=== PATIENT | female | born 2000 | race Caucasian/White ===

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

== ENCOUNTER 2020-01-08 17:00 | Emergency (ER) | payer OTHER ==
[2020-01-08 17:15] VITALS: BP 112/76; PULSE 88; TEMP 97.6; BMI 27.4
--- NOTE | 2020-01-08 17:19 | PDOC ---
Rapid Medical Evaluation Time Seen by Provider: 01/08/20 17:11 Medical Evaluation: Allergies Allergy/AdvReac Type Severity Reaction Status Date / Time No Known Allergies Allergy Verified 01/08/20 17:11 01/08/20 17:13 This patient had rapid medical evaluation in triage cc: rash HPI: Patient reports rash to her face x 1 week seen by pmd prescribed cream but states cream not working PE: NAD erythematous, scaly rash to face and eye unlabored breathing Orders: none This patient will proceed to ed for further evaluation. Discharge Disposition - Diagnosis Rash and nonspecific skin eruption - Discharge Dispostion Disposition: HOME Condition at time of disposition: Stable - Referrals Referrals: Landy Stanton MD [Staff Physician] - Eriberto Will MD [Primary Care Provider] - - Patient Instructions Additional Instructions: Please use 1% hydrocortisone as we discussed once a day on your face return to the emergency room for worsening symptoms and without fail follow-up with dermatology in 2 to 3 days for further evaluation and treatment options. - Post Discharge Activity
--- NOTE | 2020-01-08 17:34 | PDOC ---
History of Present Illness - General Chief Complaint: Rash Stated Complaint: RASH ON FACE Time Seen by Provider: 01/08/20 17:11 - History of Present Illness Initial Comments: 01/08/20 17:32 19-year-old female with a past medical history of eczema presents for exacerbation of rash on her face x2 weeks no systemic symptoms Past History - Past Medical History Allergies/Adverse Reactions: Allergies Allergy/AdvReac Type Severity Reaction Status Date / Time No Known Allergies Allergy Verified 01/08/20 17:11 Home Medications: Ambulatory Orders Ranitidine HCl [Zantac] 150 mg PO BID PRN #30 tablet MDD 2 tab 03/24/19 COPD: No - Immunization History Immunization Up to Date: Yes - Psycho Social/Smoking Cessation Hx Smoking History: Never smoked Have you smoked in the past 12 months: No Hx Alcohol Use: No Drug/Substance Use Hx: No Review of Systems - Review of Systems Constitutional: No: Fever Integumentary: Yes: Pruritus, Rash *Physical Exam - Vital Signs Last Vital Signs Temp Pulse Resp BP Pulse Ox 97.6 F 88 17 112/76 100 01/08/20 17:12 01/08/20 17:12 01/08/20 17:12 01/08/20 17:12 01/08/20 17:12 - Physical Exam 01/08/20 17:33 GENERAL: The patient is awake, alert, and fully oriented, in no acute distress. HEAD: Normal with no signs of trauma. EYES: sclera anicteric, conjunctiva clear. ENT: Ears normal tympanic membranes normal oropharynx clear uvula midline NECK: Normal range of motion LUNGS: Breath sounds equal, clear to auscultation bilaterally. No wheezes, and no crackles. HEART: S1 and S2 without murmur, rub or gallop. ABDOMEN: Soft, nontender, normoactive bowel sounds. No guarding, no rebound. No masses. EXTREMITIES: Normal range of motion, no edema. No clubbing or cyanosis. No cords, erythema, or tenderness. NEUROLOGICAL: Cranial nerves II through XII grossly intact. PSYCH: Normal mood, normal affect. SKIN: Warm, Dry, normal turgor, there is a scaly dry rash about the face is mildly erythemic and raised Medical Decision Making - Medical Decision Making 01/08/20 17:33 This may be exacerbation of eczema versus seborrheic dermatitis I have advised the patient Benadryl for itching 1% hydrocortisone once a day and follow-up with dermatology Discharge - Discharge Information Problems reviewed: Yes Clinical Impression/Diagnosis: Rash and nonspecific skin eruption Condition: Stable Disposition: HOME - Admission No - Follow up/Referral Referrals: Eriberto Will MD [Primary Care Provider] - Landy Stanton MD [Staff Physician] - - Patient Discharge Instructions Additional Instructions: Please use 1% hydrocortisone as we discussed once a day on your face return to the emergency room for worsening symptoms and without fail follow-up with dermatology in 2 to 3 days for further evaluation and treatment options. - Post Discharge Activity
== END 2020-01-08 17:43 | disposition home or self-care (01) ==
LOC: JERFT 17:00
DX: R21 Rash and other nonspecific skin eruption (principal); Z87.2 Personal history of diseases of the skin and subcutaneous tissue
CPT/HCPCS: 99283-25

== ENCOUNTER 2020-02-18 20:18 | Emergency (ER) | payer OTHER ==
[2020-02-18] MEDS ORDERED: ALBUTEROL SO4 HFA INHALER IH ONE ×2 (20:27→20:41)
[2020-02-18] MEDS ORDERED: ACETAMINOPHEN 650 MG/20.3 ML ORAL SOLUTION (CUPS) PO ONE (20:31)
[2020-02-18 20:32] VITALS: BMI 29.2
--- NOTE | 2020-02-18 20:33 | PDOC ---
History of Present Illness - General Chief Complaint: Cold Symptoms Stated Complaint: SHORTNESS OR BREATH Time Seen by Provider: 02/18/20 20:25 History Source: Patient Exam Limitations: Clinical Condition - History of Present Illness Initial Comments: 02/18/20 20:28 Patient with no sig Pmhx present with complains of 5 days h/o cough, nasal congestion, runny nose and fever . Patient report starting to have intermittent SOB and wheezing for 2 days. Denies h/o Asthma or any pulmonary hx. Denies sick contact or explosure to anybody with positive covid. Patient report has been t aking OTC meds with minimal improvement . Denies any other symptoms Is this a multiple visit Asthma Patient?: No Timing/Duration: other (5 days) Past History - Past Medical History Allergies/Adverse Reactions: Allergies Allergy/AdvReac Type Severity Reaction Status Date / Time No Known Allergies Allergy Verified 02/18/20 20:27 Home Medications: Ambulatory Orders Ranitidine HCl [Zantac] 150 mg PO BID PRN #30 tablet MDD 2 tab 03/24/19 Azithromycin [Zithromax 250mg Tablets -] 250 mg PO UTDICT #6 tab 02/18/20 Benzonatate [Tessalon Pearls -] 100 mg PO Q8H PRN #16 capsule 02/18/20 Methylprednisolone [Medrol Dose Jere] 4 mg PO ASDIR #21 tablet 02/18/20 COPD: No - Immunization History Immunization Up to Date: Yes - Psycho Social/Smoking Cessation Hx Smoking History: Never smoked Have you smoked in the past 12 months: No Hx Alcohol Use: No Drug/Substance Use Hx: No Review of Systems - Review of Systems Able to Perform ROS?: Yes Is the patient limited [place] proficient: No Constitutional: Yes: Chills, Fever, Malaise HEENTM: Yes: Symptoms Reported, See HPI, Nose Congestion. No: Eye Pain, Blurred Vision, Tearing, Recent change in vision, Double Vision, Cataracts, Ear Pain, Ocular Prothesis, Ear Discharge, Nose Pain, Tinnitus, Nose Bleeding, Hearing Loss, Throat Pain, Throat Swelling, Mouth Pain, Dental Problems, Difficulty Swallowing, Mouth Swelling, Other Respiratory: Yes: Symptoms reported, See HPI, Cough. No: Orthopnea, Shortness of Breath, SOB with Exertion, SOB at Rest, Stridor, Wheezing, Productive cough, Hemoptysis, Other Cardiac (ROS): No: Symptoms Reported, See HPI, Chest Pain, Edema, Irregular Heart Rate, Lightheadedness, Palpitations, Syncope, Chest Tightness, Other ABD/GI: No: Symptoms Reported, See HPI, Constipated, Diarrhea, Nausea, Vomiting, Abdominal cramping : No: Symptoms Reported Musculoskeletal: No: Symptoms Reported Integumentary: No: Symptoms Reported, Rash Neurological: No: Symptoms reported, Headache, Numbness, Weakness, Dizziness All Other Systems: Reviewed and Negative *Physical Exam - Physical Exam General Appearance: Yes: Nourished, Appropriately Dressed. No: Apparent Distress HEENT: positive: [place], Normal ENT Inspection, Normal Voice, Pharynx Normal Neck: positive: Supple. negative: Tender Respiratory/Chest: positive: Lungs Clear, Normal Breath Sounds. negative: Chest Tender, Respiratory Distress, Accessory Muscle Use Cardiovascular: positive: Regular Rhythm, Regular Rate. 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 Patient report starting to have intermittent SOB and wheezing for 2 days. Denies h/o Asthma or any pulmonary hx. Denies sick contact or explosure to anybody with positive covid. Patient report has been taking OTC meds with minimal improvement . Denies any other symptoms Clinical exam significant for fever of 103F. lungs CTAB in NAD. normal cardio exam. no pharyngeal erythema. Given persistent cough, will order CXR tyo r/o PNA. Tylenol 975mg PO ordered for fever albuterol inhaler ordered for bronchospasm Treat based on imaging results 02/18/20 21:48 CXR shows no PNA. Patient with improvement in bronchospasm with inhaler. Patient stable for discharge on zpak given fevers, tessalon perles for cough and medrol-jere with advise to increase fluid intake and take Tylenol as needed for fever with instructions to self quarantine. Repeat temp is 99.6F prior to d/c Discharge - Discharge Information Problems reviewed: Yes Clinical Impression/Diagnosis: URI with cough and congestion Condition: Stable Disposition: HOME - Admission No - Additional Discharge Information Prescriptions: Methylprednisolone [Medrol Dose Jere] 4 mg PO ASDIR #21 tablet Benzonatate [Tessalon Pearls -] 100 mg PO Q8H PRN #16 capsule PRN Reason: Cough Azithromycin [Zithromax 250mg Tablets -] 250 mg PO UTDICT #6 tab - Follow up/Referral Referrals: Eriberto Will MD [Primary Care Provider] - - Patient Discharge Instructions Patient Printed Discharge Instructions: [facility]-Coronavirus Instructions Additional Instructions: Your chest x-rays shows no pneumonia. Take prescribed medications as prescribed. Increase fluid intake. Take Tylenol as needed for fever. wear mask at all times and refrain from public gathering until no fever for at least 24hrs. Follow-up with your PCP - Post Discharge Activity
[2020-02-18] MEDS ORDERED: ALBUTEROL SO4 0.083% IH SOL 2.5 MG/3 ML VIAL.NEB. NEB ONE (20:40)
[2020-02-18 21:32] VITALS: BP 110/76; PULSE 102; TEMP 99.6
== END 2020-02-18 21:50 | disposition home or self-care (01) ==
LOC: JER 20:18
PROC: 3E0F7GC Introduction of Other Therapeutic Substance into Respiratory Tract, Via Natural or Artificial Opening (ICD-10-PCS; principal; 2020-02-18)
DX: J06.9 Acute upper respiratory infection, unspecified (principal); J98.01 Acute bronchospasm
CPT/HCPCS: 71045-TC-FY; 94640; 99284-25

== ENCOUNTER 2021-08-06 08:39 | Emergency (ER) | payer OTHER ==
[2021-08-06 08:45] VITALS: BMI 33.0
[2021-08-06] MEDS ORDERED: SODIUM CHLORIDE 500 ML IV STA (09:28)
[2021-08-06] MEDS ORDERED: ONDANSETRON 4 MG/2 ML VIAL IVPB ONE (09:28)
[2021-08-06] MEDS ORDERED: ONDANSETRON 4 MG/2 ML VIAL ONE (09:47)
[2021-08-06 10:18] LABS: BASO % 0.5 % (0-2.0); EOS % 2.2 % (0-4.5); HEMATOCRIT 36.4 % (32.4-45.2); HEMOGLOBIN 12.4 GM/dL (10.7-15.3); LYMPH % 18.7 % (8-40); MCH 27.1 pg (25.7-33.7); MCHC 34.1 g/dl (32.0-36.0); MEAN CELL VOLUME 79.4 fl (80-96); MEAN PLT VOLUME 7.7 fl (7.5-11.1); MONO % 6.2 % (3.8-10.2); NEUT % 72.4 % (42.8-82.8); PLATELET COUNT 231 10^3/uL (134-434); RBC 4.59 M/mm3 (3.60-5.2); RDW 14.8 % (11.6-15.6); WHITE BLOOD COUNT 8.2 K/mm3 (4.0-10.0)
[2021-08-06 10:21] LABS: EPI CELLS 19 /uL (0-25.1); HYALINE CASTS 1 /uL (0-3.1); PH,URINE 5.5 (5.0-8.0); URINE APPEARANCE CLEAR; URINE BACTERIA 400 /uL (0-1359); URINE BILIRUBIN NEGATIVE (NEGATIVE); URINE COLOR YELLOW; URINE GLUCOSE (UA) NEGATIVE (NEGATIVE); URINE KETONE NEGATIVE (NEGATIVE); URINE LEUK ESTERASE TRACE (NEGATIVE); URINE NITRITE NEGATIVE (NEGATIVE); URINE PROTEIN NEGATIVE (NEGATIVE); URINE RBC 4 /uL (0-23.9); URINE UROBILINOGEN 0.2 mg/dL (0.2-1.0); URINE WBC 29 /uL (0-25.8)
[2021-08-06 10:23] LABS: HCG,QUALITATIVE URINE Negative
[2021-08-06 10:26] LABS: INR 1.03 (0.83-1.09); PROTHROMBIN TIME (PATIENT) 12.6 SEC (9.7-13.0)
[2021-08-06 10:29] LABS: ACTIVATED PTT 31.4 SECONDS (25.2-36.5)
[2021-08-06 10:39] LABS: ALBUMIN 3.6 g/dl (3.4-5.0); BLOOD UREA NITROGEN 8.8 mg/dL (7-18); CALCIUM 8.4 mg/dL (8.5-10.1)
[2021-08-06 10:42] LABS: CREATININE 0.5 mg/dL (0.55-1.3)
[2021-08-06 10:44] LABS: BILIRUBIN,TOTAL 0.3 mg/dL (0.2-1); TOT PROT 7.6 g/dl (6.4-8.2)
[2021-08-06 13:08] VITALS: BP 108/64; PULSE 89; TEMP 98.5
== END 2021-08-06 13:05 | disposition home or self-care (01) ==
LOC: JER 08:39
PROC: 3E033GC Introduction of Other Therapeutic Substance into Peripheral Vein, Percutaneous Approach (ICD-10-PCS; principal; 2021-08-06)
PROC: 3E0337Z Introduction of Electrolytic and Water Balance Substance into Peripheral Vein, Percutaneous Approach (ICD-10-PCS; 2021-08-06)
DX: I88.0 Nonspecific mesenteric lymphadenitis (principal)
CPT/HCPCS: 36415; 74176-TC; 80053; 81003; 83690; 84703; 85025; 85610; 85730; 87086; 87491; 87591; 99284-25; C9803; U0003; U0005